=== PATIENT | female | born 1965 | race Caucasian/White ===

== ENCOUNTER 2024-07-11 11:54 | Day surgery (SDC) | payer OTHER ==
[2024-07-11] MEDS ORDERED: propofoL 200 MG/20 ML VIAL IV ONE (12:17)
[2024-07-11] MEDS ORDERED: FENTANYL CITR 100 MCG/2 ML ONE (12:17)
[2024-07-11] MEDS ORDERED: LIDOCAINE 2% MPF 5 ML VIAL ONE (12:17)
[2024-07-11] MEDS ORDERED: ONDANSETRON 4 MG/2 ML VIAL ONE (12:17)
[2024-07-11] MEDS ORDERED: MIDAZOLAM HCL 2 MG/2 ML INJ ONE (12:17)
[2024-07-11] MEDS ORDERED: ROCURONIUM 50 MG/5 ML VIAL IV ONE (12:17)
--- NOTE | 2024-07-11 12:20 | EKG ---
Test Date: 2024-07-08 Test Time: 11:59:22 [employer] Worker: ROYCE MEASUREMENT RESULTS: Intervals: Rate: 76 IN: 182 QRSD: 80 QT: 382 QTc: 429 Widener: P: 62 IN: 182 QRS: 44 T: 101 INTERPRETIVE STATEMENTS: Sinus rhythm with premature atrial complexes Otherwise normal ECG No previous ECG available for comparison Electronically Signed On 07-11-24 12:16:25 [employer] C[employer]IER by Uriel Mccall
[2024-07-11] MEDS: NA CHLORIDE 0.9% 500 ML ONE (12:40)
[2024-07-11 13:33] LABS: Anion Gap 10.2 mEq/L (5.0-15.0); Potassium 4.2 mEq/L (3.5-5.1)
[2024-07-11] MEDS ORDERED: HEPARIN 500 UNIT/5 ML SYR IV ONE (13:57)
[2024-07-11] MEDS: CEFAZOLIN SODIUM 2 GM/VIAL ONE (14:48)
[2024-07-11] MEDS: LIDOCAINE HCL/EPINEPHRINE 20 ML MDV ONE (14:50)
[2024-07-11] MEDS ORDERED: GLYCOPYRROLATE 0.2 MG/ML SYR ONE (14:59)
[2024-07-11] MEDS ORDERED: NEOSTIGMINE 1 MG/ML -10 ML VIAL ONE (14:59)
--- NOTE | 2024-07-11 15:00 | P.OP ---
Preoperative diagnosis: End Stage Renal Disease Postoperative diagnosis: End Stage Renal Disease Primary procedure: Diagnostic Laparoscopy Anesthesia: GETA + Local Estimated blood loss: <1cc Specimen: none Findings: Dense Adhesions in abdomen Complications: None Transferred to: Recovery Room Condition: Good
[2024-07-11] MEDS: MORPHINE 4 MG/ML SYR ONE ×2 (15:28→15:38)
[2024-07-11] MEDS: HYDROCODONE/APAP 7.5/325 MG TAB ONE (16:15)
[2024-07-11 16:34] VITALS: TEMP 96.6
[2024-07-11 16:37] VITALS: BP 156/66; O2SAT 98
--- NOTE | 2024-07-12 02:49 | OP ---
Date of Procedure: 07/11/2024 Surgeon: Sarbjit Snyder MD, Brief History Of Present Illness: The patient is a 59-year-old woman with end-stage renal disease, m aintained on hemodialysis, who had a urostomy placed years ago, which is minimally functional. She r equires hemodialysis on Thursday, , Thursday, who ultimately presented with discussion of poss ible placement of a laparoscopic peritoneal dialysis catheter. We explained that the patient has a l ow risk of being successful with her history of multiple abdominal surgeries, abdominal mesh placemen t, a urostomy, even though it is non essentially minimally functional at this point and not relied up on for ongoing renal clearance. As such, we discussed the risks, benefits, and alternatives includin g, but not limited to bleeding, infection, damage to surrounding tissue, need for further operative p rocedures, blood clots, heart attack, strokes, other unforeseen complications in the perioperative pe riod. The patient displayed understanding of above stated plan and agreed to proceed as indicated. Preoperative Diagnosis: End-stage renal disease. Postoperative Diagnosis: End-stage renal disease. Procedures Performed: Diagnostic laparoscopy, unsuccessful; nonattempted placement of peritoneal radha lysis catheter. Anesthesia: General endotracheal plus local with 1% lidocaine. Estimated Fluid Loss: 1 cc. Specimen: None. Findings: Dense adhesions of the abdomen were noted to the midline. There were obvious connections at the urostomy, but there were significant adhesions beyond the urostomy tracing down to the pelvis. There were adhesions between the sigmoid colon and in the rectal area precluding optimal position o f the catheter in this position in addition to the dense adhesions as described with respect to the i ntestines. The patient was transferred to recovery room in good condition. No complications. Procedure In Detail: After informed consent was obtained as above, patient was brought to the operat ing room, prepped and draped in the usual sterile fashion after adequate anesthesia was achieved. I anesthetized the area of the left upper quadrant down to subcutaneous tissue. A 5-mm 0-degree optica l trocar was introduced in the abdomen without incident or complication. Insufflation was obtained t o 15 mmHg at this time. There was no injury to vital structures upon entry in the abdomen. I then i nspected the abdomen and found there to be severe dense adhesions between previously placed mesh in t he midline and circumferentially around the area and through a urostomy, which was placed right of mi dline. The urostomy appeared in place without any obvious dysfunction or leakage; however, there was severe dense adhesions circumferentially around this area going to the left of midline and down into the infraumbilical position and there was scar tissue between the sigmoid colon and into the rectum area at the rectosigmoid junction precluding safe placement of the peritoneal dialysis catheter in op timal position at this point. As such, the procedure at this point was decided to be abandoned and I desufflated the abdomen under direct visualization without incident or complication. The trocars we re removed. All skin edges were then copiously irrigated and closed with a 4-0 Monocryl in a running fashion. Dermabond was placed over top. The patient tolerated the procedure without incident or co mplication and transferred to PACU in good condition. All counts were correct at the end of the case . AMOR/AKIKO Voice ID: [id number] Report ID: [id number]
== END 2024-07-11 16:31 | disposition home or self-care (01) ==
LOC: OR 11:54
PROVIDERS: ATTEND Surgery
PROC: 0DJD4ZZ Inspection of Lower Intestinal Tract, Percutaneous Endoscopic Approach (ICD-10-PCS; principal; 2024-07-11 15:15)
DX: N18.6 End stage renal disease (principal); K66.0 Peritoneal adhesions (postprocedural) (postinfection); Z99.2 Dependence on renal dialysis
CPT/HCPCS: 49320; 93005; 80048; 36415; J2704; J2710; J2003; J2250; J3010; J1642; J2405; J7040